=== PATIENT | male | born 1960 | race African-American/Black ===

== ENCOUNTER 2016-07-30 07:53 | Inpatient (IN) | payer MEDICAID ==
[~2016-07-30] VITALS: Ht 172.7 cm; Wt 74.6 kg
[2016-07-30 08:39] LABS: BASOPHILS 0.1 % (0.0-2.0); EOSINOPHILS 0.2 % (0-7); HEMATOCRIT 35.4 % (42.0-54.0); IMMATURE GRANULOCYTES 0.6 % (0-5); LYMPHOCYTES 7.9 % (15-50); MCH 29.9 pg (26.0-34.0); MCHC 33.9 g/dL (31.0-37.0); MCV 88.1 fL (80.0-100.0); MEAN PLATELET VOLUME 9.1 fL (7.4-10.4); MONOCYTES 7.1 % (2-11); NEUTROPHILS 84.1 % (40-80); RBC 4.02 10x6/uL (4.20-6.10); WBC 10.1 10x3/uL (4.8-10.8)
[2016-07-30 08:42] LABS: PLATELET COUNT 122 10x3/uL (130-400)
[2016-07-30 08:48] LABS: APPEARANCE SLT CLOUDY (CLEAR); BILIRUBIN NEGATIVE (NEGATIVE); COLOR YELLOW (YELLOW); GLUCOSE NEGATIVE (NEGATIVE); KETONE NEGATIVE (NEGATIVE); LEUKOCYTE ESTERASE 2+ (NEGATIVE); NITRITE POSITIVE (NEGATIVE); PROTEIN 1+ mg/dL (NEGATIVE); SPECIFIC GRAVITY 1.015 (1.005-1.020); UROBILINOGEN NORMAL (NORMAL); WHITE CELLS - URINE 25-50 /hpf (0-5)
[2016-07-30 08:49] LABS: BACTERIA MANY /hpf (NONE SEEN); CALCIUM OXALATE CRYSTALS RARE /hpf (NONE SEEN); EPITHELIAL CELLS 0-5 /hpf (0-5); MUCUS <1+ /lpf (NONE SEEN)
[2016-07-30 09:22] LABS: ALBUMIN 3.6 g/dL (3.4-5.0); ANION GAP 12.1 mmol/L (8-16); BILIRUBIN - TOTAL 0.87 mg/dL (0.2-1.3); CARBON DIOXIDE 29.8 mmol/L (21.0-32.0); CREATININE - SERUM 1.4 mg/dL (0.6-1.3); POTASSIUM - SERUM 3.9 mmol/L (3.5-5.1); PROTEIN - SERUM 6.7 g/dL (6.4-8.2)
[2016-07-30] MEDS ORDERED: LIDOCAINE HC10 MG/M3 IM (13:38)
[2016-07-30] MEDS ORDERED: CATAPRES0.1 MG PO (13:38)
[2016-07-30] MEDS ORDERED: FUROSEMIDE40 MG PO (13:38)
[2016-07-30] MEDS ORDERED: CEFTRIAXONE1 G/VIAL IM (13:38)
[2016-07-30 13:43] VITALS: BP 158/109; BMI 24.2
[2016-07-30] MEDS ORDERED: PROTONIX40 MG PO (14:05)
[2016-07-30] MEDS ORDERED: NICODERM C1 PATCH .2 TRANSDERM (14:05)
[2016-07-30] MEDS ORDERED: NORCO 7.5/325 T1 TA1 PO (14:06)
[2016-07-30] MEDS ORDERED: TRAZODONE HCL50 MG PO (14:07)
[2016-07-30] MEDS ORDERED: VALIUM5 MG PO (14:08)
[2016-07-30] MEDS ORDERED: K-DUR20 MEQ PO (14:08)
[2016-07-30] MEDS ORDERED: MILK OF MAGNESI30 ML PO (14:09)
[2016-07-30] MEDS ORDERED: NEURONTIN 300300 MG PO (14:10)
[2016-07-30] MEDS ORDERED: ACETAMINOPHEN325 MG PO (14:10)
[2016-07-30] MEDS ORDERED: SENNA LAXATIVE8.6 MG PO (14:11)
[2016-07-30] MEDS ORDERED: NORVASC5 MG PO (14:11)
[2016-07-30] MEDS ORDERED: TIMOPTIC 0.5 % O5 ML EACH EYE (14:12)
[2016-07-30] MEDS ORDERED: ZOFRAN ODT4 MG/UDTAB PO (14:13)
[2016-07-30] MEDS ORDERED: VITAMIN D5000 UNIT PO (14:13)
--- NOTE | 2016-07-30 14:27 | NUR ---
TO REHAB VIA WC.
[2016-07-30 15:25] VITALS: BP 99/54
--- NOTE | 2016-07-30 15:44 | NUR ---
INFORMED BY BRANCH MECHANIC VS ARE FOLLOWS: BP 99/54, P 113, R 16, TEMP 103.1. DR. GOODMAN NOTIFIED BUT HE INFORMED THIS NURSE THAT DR. AGUILAR IS THE ADMITTING DR. DR. AGUILAR NOTIFIED AND ORDERS RECEIVED. BOLUS OF 500CC OF IV FLUIDS STARTED ORDERED. TYLENOL 500MG X2 GIVEN PO FOR TEMP. WILL CONTINUE TO MONITOR.
--- NOTE | 2016-07-30 16:51 | NUR ---
BOLUS DONE. TEMP IS 102.7. BP 110/64
--- NOTE | 2016-07-30 17:28 | HP ---
PATIENT: NOREEN SCHWARTZ MEDICAL RECORD: [id number] ACCOUNT: [id number] LOCATION:[address] : [birth year] ADMISSION DATE: 07/30/16 HISTORY AND PHYSICAL EXAMINATION REASON FOR ADMISSION: Fever and chills. HISTORY OF PRESENT ILLNESS: The patient is a 66-year-old black male from [facility] who was noted to have chills and fever yesterday. It became worse today and his urine appeared cloudy in his Corona, he was sent in for possible urosepsis. The patient said he was chilling so hard, he can hardly keep his teeth closed. He states he has had a remote stroke a few years ago and has been living in this area for the last 10 months at the skilled nursing where he has family working. He said that he had a stroke about 3 years ago and has been unable to care for himself since. He denies cough or abdominal pain. PAST MEDICAL HISTORY: History of skin pressure ulcer, incontinence, CVA with left hemiparesis, essential hypertension, history of urinary retention, chronic anxiety, GERD, chronic pain. PAST SURGICAL HISTORY: He said he has had undergone a surgery on his neck. He is not sure what it was. ALLERGIES: None known. CURRENT MEDICATIONS: Protonix 40 mg p.o. daily, Nicoderm 7 mg q.24 hours, Hensley 325/7.5 one q.6 for pain, trazodone 50 mg one to two at bedtime for sleep, Valium 5 mg p.o. b.i.d., potassium chloride 20 mEq p.o. daily, Milk of Magnesia 15 cc p.o. p.r.n. constipation, clonidine 0.1 two times a day, Lasix 40 mg p.o. q.a.m., Neurontin 300 mg t.i.d., Norvasc 5 mg daily, Senokot 2 tabs daily, timolol maleate 0.5% ophthalmic drops 2 times a day, vitamin D 50,000 units weekly, Zofran ODT 4 mg q.4 hours p.r.n. nausea or vomiting. FAMILY HISTORY: He does not know his family's history. SOCIAL HISTORY: Remote smoker, does not drink alcohol. He used to work in the [employer], he states. He has never been . REVIEW OF SYSTEMS: GENERAL: He denies general malaise until the last 24 hours when he felt chills and fever. HEENT: No recent visual change, sinus congestion, sore throat, or trouble swallowing. RESPIRATORY: No SOB or cough, sputum production. CARDIAC: No chest pain, claudication or edema. He has history of hypertension. No history of heart disease. GASTROINTESTINAL: Some nausea without vomiting. He has intermittent constipation, he states. He had a BM 2 days ago. No history of liver disease or hepatitis. GENITOURINARY: A year and a half ago had trouble with urinary retention, has required a Corona catheter since that time. ENDOCRINE: Denies polyuria, polydipsia, heat or cold intolerance. NEUROLOGIC: Remote history of right hemispheric stroke. No history of seizures. MUSCULOSKELETAL: He has chronic pain in his lumbar spine. HISTORY AND PHYSICAL [id number] NOREEN SCHWARTZ INTEGUMENT: No recent rash or itching. PSYCHIATRIC: Admits to being anxious at times. INTEGUMENT: Had history of decubitus ulcer. PHYSICAL EXAMINATION: VITAL SIGNS: Temperature is 101, heart rate is 90, blood pressure 110/70. The patient is alert and oriented. Respiratory rate is 18. HEENT: Normocephalic. Eyes are clear. NECK: No bruits or masses. CHEST: Clear. HEART: Tachycardic without murmur. ABDOMEN: Mildly distended with hypoactive bowel sounds, nontender. No masses palpable. RECTAL: No stool in the vault. EXTREMITIES: No CC&E. NEUROLOGICAL: The patient is oriented to person and place, but not time. Vision is intact. He has moderate right hemiparesis, weakness in his right arm and leg. Gait was not tested. LABORATORY DATA: Lactic acid is 2.9. Ammonia is 11. White count is 10,000 with 84 polys, 7 lymphs. H&H is 12 and 35 respectively. UA shows cloudy urine, nitrite positive, 5-10 red, 25-50 white cells, many bacteria. Electrolytes were normal. BUN and creatinine is 13 and 1.4. GFR 66 cc per minute. Calcium is normal. Liver functions are normal. DIAGNOSTIC DATA: Chest x-ray was not obtained. EKG shows sinus tachycardia. ASSESSMENT: 1. Urinary tract infection with possible urosepsis. 2. Elevated lactic acid. 3. Hypertension. 4. Tachycardia. 5. History of gastroesophageal reflux disease, remote cerebrovascular accident, remote history of urosepsis, and chronic pain syndrome. PLAN: The patient was given fluid boluses in the ER. He has also been given Tylenol for fever, which is improved. We will culture blood and urine. Place on IV antibiotics. Further workup pending clinical course. TRANSINT:[id number] Voice Confirmation ID: [id number] DOCUMENT ID: [id number] ALHAJI AGUILAR MD at 1728 CC: [id number] DICTATION DATE: 07/30/16 1256 TEACHING ARTIST: 07/30/16 1342 ADM IN [facility] [address] [place] [address]
--- NOTE | 2016-07-30 18:20 | NUR ---
RECEIVED REPORT, [id number], HAS YINA, DENIES ANY NEEDS, CALL LIGHT IN REACH, SCD ARE ON, BED IS LOW, SRX2
--- NOTE | 2016-07-30 22:38 | NUR ---
TEMP-103.1A, BP-107/55, WILL RECHECK TEMP IN 30 MIN
[2016-07-30 22:54] VITALS: BP 119/86
--- NOTE | 2016-07-30 23:16 | NUR ---
RECHECK TEMP-102.4, WILL CONTINUE TO MONITOR
[2016-07-31 00:30] VITALS: BP 98/59
--- NOTE | 2016-07-31 01:31 | NUR ---
LYING IN BED, CALL LIGHT IN REACH. WILL CONTINUE WITH PLAN OF CARE.
[2016-07-31 05:23] VITALS: BP 105/60
[2016-07-31 06:02] LABS: BASOPHILS 0.1 % (0.0-2.0); EOSINOPHILS 0 % (0-7); HEMATOCRIT 29.7 % (42.0-54.0); HEMOGLOBIN 10.1 g/dL (13.5-17.5); IMMATURE GRANULOCYTES 0.3 % (0-5); LYMPHOCYTES 9.4 % (15-50); MCH 29.8 pg (26.0-34.0); MCV 87.6 fL (80.0-100.0); MEAN PLATELET VOLUME 9.6 fL (7.4-10.4); NEUTROPHILS 85.2 % (40-80); PLATELET COUNT 106 10x3/uL (130-400); RBC 3.39 10x6/uL (4.20-6.10); RDW 14.4 % (11.5-14.5)
[2016-07-31 06:17] LABS: WBC 7.1 10x3/uL (4.8-10.8)
[2016-07-31 06:37] LABS: CALCIUM 8.6 mg/dL (8.5-10.1); CREATININE - SERUM 1.3 mg/dL (0.6-1.3)
[2016-07-31 08:00] VITALS: BP 114/74
--- NOTE | 2016-07-31 10:47 | NUR ---
WOUND CARE CONSULT: PT HAS HISTORY OF PRESSURE INJURIES EVIDENCED BY SCARS ON SACRUM/COCCYX/BUTTOCKS, HEELS AND ANKLES. CURRENTLY HE HAS NO OPEN WOUNDS. BILATERAL HEELS AND FEET/TOES HAVE CALLOUSED AREAS AND THERE IS ALSO OLD SCARS AND PEELING DRY SKIN TO SHINS AND CALVES. FEET AND LOWER LEGS ARE VERY DRY AND PEELING, MOISTURIZER APPLIED. HEELS ARE BRIDGED A PRECAUTION. PT IS AWARE THAT HE NEEDS TO CHANGE POSITIONS/TURN EVERY 2 HOURS. HE WAS PLACED ON HIS LEFT SIDE SUPPORTED BY PILLOWS. HE WAS PLACED ON AN AIR OVERLAY MATTRESS. WOUND CARE WILL CONTINUE TO MONITOR.
--- NOTE | 2016-07-31 11:20 | NUR ---
IV access-#20 introcan IV catheter in right hand x 1 attempt for saline lock. Christin Morales RN
--- NOTE | 2016-07-31 11:20 | NUR ---
IV RESITED IN RT HAND BY ANA LAURA LINDSEY NURSE.
[2016-07-31 12:00] VITALS: BP 110/65
[2016-07-31 13:59] VITALS: Ht 172.7 cm; Wt 74.6 kg
--- NOTE | 2016-07-31 14:44 | NUR ---
Patient Name: NOREEN SCHWARTZ Admission Status: ER Accout number: [id number] Admission Date: 07-30-2016 : 1960 Admission Diagnosis: Attending: SHAVONNE Current LOS: 1 Anticipated DC Date: 08-04-2016 Planned Disposition: Ekg Technician Care Fac [facility] Primary Insurance: MEDICAID [place] Discharge Planning Comments: CM MET WITH PATIENT REGARDING D/C NEEDS AND PLANS. PATIENT STATED HE IS A RESIDENT AT [facility] AND WILL RETURN THERE AT DISCHARGE. PATIENT USES A HOSPITAL BED AND WHEELCHAIR AT THE FACILITY. PATIENT HAS TO BE PLACED IN WHEELCHAIR. PATIENT STATED CALL APOLONIA LOPEZ ([facility]) WITH ANY QUESTIONS OR CONCERNS. CM WILL CONTINUE TO FOLLOW PATIENT WITH D/C NEEDS AND PLANS. PCP [facility] IN HOUSE AT [place] APOLONIA LOPEZ ([facility]) [phone] [facility] [phone] Treasury Associate: Kelli eMadows Is the patient Alert and Oriented? Yes 0 * How many steps to enter\exit or inside your home? 0 0 * PCP DR. ROYAL VILLAFANA 0 * Pharmacy IN HOUSE 0 * Preadmission Environment [facility] 0 * Facility Name [facility] 0 * ADLs Total Dependent 0 * Equipment Hospital Bed Wheelchair 0 * List name and contact numbers for known caregivers / representatives who currently or will assist patient after discharge: APOLONIA LOPEZ ([facility]) [phone] 0 * Community resources currently utilized None 0 * Additional services required to return to the preadmission environment? Yes 0 * Can the patient safely return to the preadmission environment? Yes 0 * Has this patient been hospitalized within the prior 30 days at any hospital? No 0 Grand Total: 0
[2016-07-31 16:00] VITALS: BP 113/69
[2016-07-31 21:18] VITALS: BP 142/51
[2016-08-01 01:12] VITALS: BP 125/76
[2016-08-01 05:01] VITALS: BP 129/84
[2016-08-01 06:06] LABS: CALCIUM 8.7 mg/dL (8.5-10.1); CARBON DIOXIDE 25.5 mmol/L (21.0-32.0); CHLORIDE - SERUM 109 mmol/L (98-107); GLUCOSE 100 mg/dL (74-106); POTASSIUM - SERUM 3.2 mmol/L (3.5-5.1); SODIUM 144 mmol/L (136-145)
[2016-08-01 06:07] LABS: CALC OSMOLALITY 283 mosm/kg (275-300); CREATININE - SERUM 0.9 mg/dL (0.6-1.3); UREA NITROGEN 5 mg/dL (7-18); eGFR NON AFRICAN AMERICAN > 90 mL/min (90-120)
[2016-08-01 06:08] LABS: BASOPHILS 0 % (0.0-2.0); EOSINOPHILS 0 % (0-7); HEMATOCRIT 29.1 % (42.0-54.0); HEMOGLOBIN 9.9 g/dL (13.5-17.5); IMMATURE GRANULOCYTES 0.5 % (0-5); LYMPHOCYTES 18.5 % (15-50); MCH 29.6 pg (26.0-34.0); MCV 86.9 fL (80.0-100.0); MEAN PLATELET VOLUME 9.8 fL (7.4-10.4); MONOCYTES 8.1 % (2-11); NEUTROPHILS 72.9 % (40-80); PLATELET COUNT 111 10x3/uL (130-400); RBC 3.35 10x6/uL (4.20-6.10); RDW 14.1 % (11.5-14.5)
--- NOTE | 2016-08-01 07:32 | NUR ---
0700-AM ROUNDING MADE. PATIENT IS A QUAD, TOTAL CARE WTIH BLOW TUBE FOR CALL LIGHT. BILATEAL UPPER EXTREMIEITES ARE CONTRACTURED. BILATERAL LOWER LEGS ARE VERY STILL TO MOVE. SCD'S PLACED ON PATIENT. ON 1ST STEP OVERLAY MATTRESS. ON HEART MONITOR SHWOING SR, HR 64. RIGHT HAND SEEN WITH NS INFUSING AT 75 CC/HR WITHOUT PROBLEMS. BRAN CATH PATENT WITH YELLOW URINE. PATIENT IS TURN EVERY TWO HOURS, TURNED TO LEFT SIDE WITH PILLOWS AT THIS TIME WITH HELP FROM OR[place]O GONZALES. WILL CONTINUE TO MONITOR.
[2016-08-01 08:00] VITALS: BP 139/83
--- NOTE | 2016-08-01 10:16 | NUR ---
LAYING ON LEFT SIDE WITH PILLOWS BEHIND FOR COMFORT. AM MEDS GIVEN. DENIES ANY NEEDS.
[2016-08-01 12:00] VITALS: BP 117/76
[2016-08-01 16:00] VITALS: BP 137/79
--- NOTE | 2016-08-01 18:09 | NUR ---
PATIENT HAS BEEN CLEANED TWICE THIS SHIFT FOR INCONT. OF STOOL. TURNED EVERY TWO HOURS. BLOW CALL LIGHT IN USE. WILL CONTINUE TO MONITOR.
[2016-08-01 22:07] VITALS: BP 127/80
--- NOTE | 2016-08-01 22:27 | NUR ---
INITIAL ROUNDS COMPLETED AT 1914 HRS. PT DENIED ANY DISCOMFORT. H2O GIVEN PER REQUEST. PT INCONTINENT OF STOOL AT 2024 HRS. INCONTINENT CARE DONE. PT DECLINES OFFER TO BE TURNED AT THAT TIME STATING HE WANTS TO BE ON HIS BACK. ASSESSMENT COMPLETED AT 2029 HRS. IV TO R HAND WITH NS AT 10CC/HR. IV PATENT. LUNGS DIMINISHED IN BASES BILAT. HAND WITH CONTRACTURES AND LEGS STIFF. PALPABLE PEDAL PULSES. SCD'S IN USE. SCD'S REMOVED AND SKIN INSPECTED. NO BREAKDOWN NOTED. SMALL THICKENED AREA NOTED TO L HEEL. PT STATES PAINFUL TO TOUCH. BILAT LOWER LEGS ELEVATED TO GET HEELS OFF THE BED. BRAN DRAINING YELLOW URINE. 1ST STEP AIR OVERLAY IN USE. SR PER CM HR 66. PT REFUSED PM EYE DROPS. PT INCONTINENT OF STOOL AT 2134 HRS. INCONTINENT CARE DONE. PT REFUSES TO BE TURNED AND STATES WANTS TO STAY ON BACK. PILLOWS REPOSITIONED AND NOURISHMENT OFFERED. PT CURRENTLY DENIES ANY NEEDS. CALL LIGHT WITHIN REACH.
--- NOTE | 2016-08-01 22:57 | NUR ---
PT INSISTING HIS BRAN IS CLOGGED. REAJUSTED BALLOON WITH NO RESISTANCE NOTED. BRAN FLUSHED WITH 20CC OF STERILE SALINE USING STERILE TECHNIQUE. NO RESISTANCE NOTED AND IMMEDIATE DRAINAGE OCCURED. SHOWED PT BRAN WITH 300CC OF YELLOW URINE IN BAG. PT'S CHRONIC CATH DOES NOT FIT STAYLOCK. STAYLOCK IS TOO SMALL. BRAN REMOVED FORM STAYLOCK AND ADHERED TO THIGH. WILL CONTINUE TO MONITOR. CALL LIGHT WITHIN REACH.
--- NOTE | 2016-08-02 00:53 | NUR ---
BED ATH DONE, BED LINENS CHANGED. PT REPOSITIONED IN BED FOR COMFORT. WILL CONTINUE TO MONITOR.
[2016-08-02 01:00] VITALS: BP 141/84
--- NOTE | 2016-08-02 02:20 | NUR ---
PT RESTING WITH EYES CLOSED. RESP EVEN AND REGULAR. SR UP X2, CALL LIGHT WITHIN REACH.
--- NOTE | 2016-08-02 02:42 | NUR ---
PT INCONTINENT OF STOOL. INCONTINENT CARE DONE. PT REPOSITIONED ONTO R SIDE AT THAT TIME. WILL CONTINUE TO MONITOR. CALL LIGHT WITHIN REACH.
--- NOTE | 2016-08-02 04:02 | NUR ---
PT REPOSITIONED IN BED FOR COMFORT. WILL CONTINUE TO MONITOR.
[2016-08-02 04:31] VITALS: BP 156/63
--- NOTE | 2016-08-02 06:35 | NUR ---
VSS THROUGHOUT NIGHT. SR PER CM. PT INCONTINENT OF STOOL X4 DURING SHIFT. PT REFUSED TO BE TURNED A FEW TIMES. NEEDS MET; WILL CONTINUE TO MONITOR.
--- NOTE | 2016-08-02 07:23 | NUR ---
0710-AM ROUNDING MADE. PATIENT IS USING HIS BLOW CALL LIGHT, HE IS A QUAD. UNABLE TO EXTEND ARMS, CONTRACTURED. BILATERAL LEGS ARE STIFF, SCD'S ARE ON AND IN USE. ON 1ST STEP OVERLAY MATTRESS. ON HEART MONITOR SHOWING SB, HR 51. BRAN CATH PATENT WITH YELLOW URINE. RIGHT HAND SEEN WITH NS INFUSING AT 10 CC/HR. WILL CONTINUE TO MONITOR.
--- NOTE | 2016-08-02 07:30 | NUR ---
LAB HERE WITH RESULTS ON PAPER OF ESBL + E COLI ISOLATED. TO BE IN CONTACT ISOLATION.
[2016-08-02 07:40] LABS: BASOPHILS 0.3 % (0.0-2.0); EOSINOPHILS 1.3 % (0-7); HEMATOCRIT 29.6 % (42.0-54.0); HEMOGLOBIN 10.1 g/dL (13.5-17.5); IMMATURE GRANULOCYTES 0.3 % (0-5); LYMPHOCYTES 29.3 % (15-50); MCH 29.5 pg (26.0-34.0); MCHC 34.1 g/dL (31.0-37.0); MCV 86.5 fL (80.0-100.0); MONOCYTES 9.7 % (2-11); NEUTROPHILS 59.1 % (40-80); PLATELET COUNT 119 10x3/uL (130-400); RBC 3.42 10x6/uL (4.20-6.10); RDW 13.9 % (11.5-14.5)
[2016-08-02 07:43] LABS: WBC 3.9 10x3/uL (4.8-10.8)
[2016-08-02 07:57] LABS: CALC OSMOLALITY 281 mosm/kg (275-300); CALCIUM 8.4 mg/dL (8.5-10.1); CARBON DIOXIDE 25.6 mmol/L (21.0-32.0); CHLORIDE - SERUM 109 mmol/L (98-107); CREATININE - SERUM 0.8 mg/dL (0.6-1.3); GLUCOSE 95 mg/dL (74-106); POTASSIUM - SERUM 3.3 mmol/L (3.5-5.1); SODIUM 143 mmol/L (136-145); UREA NITROGEN 5 mg/dL (7-18); eGFR NON AFRICAN AMERICAN > 90 mL/min (90-120)
[2016-08-02 08:00] VITALS: BP 128/80
--- NOTE | 2016-08-02 08:08 | NUR ---
K+ IS 3.3, WILL REPLACE WITH SUPPLEMENTS.
[2016-08-02 12:00] VITALS: BP 132/76
--- NOTE | 2016-08-02 14:50 | NUR ---
WE HAVE RE-POSTIOINED PATEINT NUMEROUS TIMES TODAY AND ALSO BEEN TURNING HIM EVERY TWO HOURS. HAS BEEN ON THE CALL LIGHT APPROX. EVERY 15-30 MIN. WITH REQUESTS. WILL CONTINUE TO MONITOR.
[2016-08-02 16:27] VITALS: BP 143/83
--- NOTE | 2016-08-02 17:22 | NUR ---
ANSWERED CALL LIGHT AGAIN, PATIENT WANTING TV OFF. ASKED IF PATIENT WAS HUNGRY SINCE HE HAS NOT EATEN ALL DAY, HE REPLIES, "I'LL EAT IN A BIT" WILL CONTINUE TO MONITOR.
--- NOTE | 2016-08-02 19:40 | NUR ---
PT INCONTINENT OF STOOL AT SHIFT CHANGE. INCONTINENT CARE DONE. REPOSITIONED IN BED FOR COMFORT. WILL CONTINUE TO MONITOR.
[2016-08-02 21:20] VITALS: BP 143/83
--- NOTE | 2016-08-02 23:40 | NUR ---
ASSESSMENT COMPETED AT 1950 HRS. VSS. SB PER CM HR 54. IV TO R HAND WITH NS AT TKO. IV PATENT. LUNGS DIMINISHED INBASES BILAT. BILAT HANDS WITH CONTRACTURES. GROSS MOVEMENT TO R ARM NOTED. BILAT LEGS STIFF . UNSTAGEABLE SORE APPROX 2CM IN DIAMTER NOTED TO L HEEL. BILAT HEELS ELEVATED ON PILLOWS. SCD'S REMOVED AND SKIN INSPECTED. NO BREAKDOWN NOTED. BRAN DRAINING YELLOW URINE. PT ON A 1ST STEP AIR OVERLAY MATTRESS. PT REFUSES EYE DROPS BUT ACCEPTED TYLENOL 500MG PO FOR A CORRIGAN. PT LABOR UTILIZATION SUPERINTENDENT LIGHT FREQUETLY REQUESTING TO BE TURNED, PILLOWS ADJUSTED, REFRESHMENTS TO BE GIVEN OR TO BE READJUSTED IN BED. PT CURRENTLY RESTING WITH EYES CLOSED. RAMSEY EVEN AND REGULAR. SR UP X2, CLL LIGHT WITHIN JAH.
[2016-08-03 00:30] VITALS: BP 137/81
--- NOTE | 2016-08-03 01:19 | NUR ---
PT RESTING WITH EYES CLOSED. RESP EVEN AND REGULAR. SR UP X2, CALL LIGHT WITHIN REACH.
--- NOTE | 2016-08-03 02:36 | NUR ---
PT RESTING WITH EYES CLOSED. RESP EVEN AND REGULAR. SR UP X2, CALL LIGHT WITHIN REACH.
[2016-08-03 04:30] VITALS: BP 125/68
--- NOTE | 2016-08-03 04:42 | NUR ---
CRANBERRY JUICE GIVEN PER REQUEST. WILL CONTINUE TO MONITOR.
--- NOTE | 2016-08-03 06:41 | NUR ---
VSS THROUGHOUT NGIHT. SR PER CM. PT VERY DEMANDING DURING SHIFT, RESPITE WORKER LIGHT FREQUENTLY TO READJUST PILLOWS, SMOOTH SHEETS, MOVE EXTREMITIES ETC. NEEDS MET; WILL CONTINUE TO MONITOR.
--- NOTE | 2016-08-03 07:34 | NUR ---
0700-IN CONTACT ISOLATION FOR E COLI CONTAINED IN URINE, PATIENT HAS A CHRONIC CATH. PATIENT IS A QUAD, CONTRACTURES SEEN TO BILATERAL HANDS AND ARMS. NS INFUSING TO RIGHT HAND AT KVO. BILATEAL LEGS ARE VERY STIFF, PATIENT IS TOTAL CARE. SCD'S ARE ON AND IN USE. ON HEART MONITOR SHOWING SB, HR 50. ON ROOM AIR. PATIENT USES BLOW STRAW FOR CALL LIGHT. ON 1ST STEP OVERLAY MATTRESS. POSTIONINED TO LEFT SIDE WITH PILLOWS FOR COMFORTS, LEFT HEEL WITH SOFT SPOT, UP ON PILLOW. WILL CONTINUE TO MONITOR. 0724-CALLED BACK IN ROOM FOR SIP OF WATER.
[2016-08-03 07:59] LABS: MAGNESIUM - SERUM 1.4 mg/dL (1.8-2.4); POTASSIUM - SERUM 3.1 mmol/L (3.5-5.1)
[2016-08-03 09:10] VITALS: BP 144/77
--- NOTE | 2016-08-03 09:58 | NUR ---
0724-CALLED TO ROOM FOR SIP OF COLD WATER. 0754-CALLED TO ROOM FOR SIP OF WATER 0804-CALLED TO ROOM TO STRATEN LEFT HEEL OUT. 0820-GAVE AM MEDS AND POTASSIUM REPLACEMENT 0845-CALLED TO ROOM WITH COMPLAINT OF BRAN DISCOMFORT, FOELY IS PATENT AND DRAINING. 0910-CALLED TO ROOM TO BE PLACED ON RIGHT SIDE. 1000-CALLED TO ROOM TO BE PLACED ON LEFT SIDE, DONE WITH PILLOWS. ASKED IF HE NEEDED ANYTHING ELSE WHILE I AM IN HERE, DENIES NEEDS.
[2016-08-03 12:00] VITALS: BP 140/68
--- NOTE | 2016-08-03 12:00 | NUR ---
1018-CALLED TO ROOM WANTING PILLOWS REMOVED, PLACED ON BACK. 1105-PLACED ON LEFT SIDE WITH PILLOWS. 1126-WANTING PILLOWS UNDER RIGHT SHOULDER. 1150-CALLED TO ROOM WANTING THE BLUE CUP AND PACKAGES OF CHIPS REMOVED AND PLACED BY THE PHONE.
--- NOTE | 2016-08-03 12:48 | NUR ---
1214-CALLED TO ROOM FOR SIP OF WATER. 1224-WANTS TO SEE NURSE. 1230-WANTS TO KNOW WHEN HE WILL GO HOME, I TOLD HIM THAT DR AGUILAR SAID YESTERDAY HE WOULD BE HERE OVER THE WEEKEND. STARTED TO STEP OUT AND HE WANTED PLACED ON HIS RIGHT SIDE.
--- NOTE | 2016-08-03 13:05 | NUR ---
DR ECHEVERRIA HERE TO SEE PATIENT. PATIENT HAS BEEN CLEANED WITH COMPELTE BATH AND LINEN CHANGE R/T INCONT. STOOL
[2016-08-03] MEDS ORDERED: MACROBID100 MG PO (13:19)
[2016-08-03] MEDS ORDERED: LEVAQUIN750 MG PO (13:19)
--- NOTE | 2016-08-03 15:18 | NUR ---
CALLED REPORT TO SELMA JOSEPH LPN AT [facility].
[2016-08-03 16:00] VITALS: BP 149/87
--- NOTE | 2016-08-03 16:24 | NUR ---
CALLED [facility] TO TRANSPORT PATIENT TO [facility].
--- NOTE | 2016-08-03 17:10 | NUR ---
1250-NEEDS TO BE CHANGED, INCONT. OF STOOL. PLACED ON BACK. 1322-CALLED TO ROOM, NEEDS HELP TO MAKE PHONE CALL. 1337-WANTS TO KNOW IF HE IS GOING HOME, WHAT TIME HE IS GOING, AND WANTS TRAY REMOVED FROM ROOM. 1405-MEDS GIVEN WITH SIP OF WATER. 1540-CALLED TO RAISE HEAD OF BED, PLACED ON RIGHT SIDE. 1515-WANTS MORE ON RIGHT SIDE. 1531-COVER HANDS UP, REMOVE/STRAIGHTEN LINEN UNDER HIS SHOULDER, PUSH CALL LIGHT BACK TO HIM. 1545-SIP OF WATER 1558-SOMETHING IS BOTHERING HIM UNDER HIS BACK, RE-ADJUSTED 1640-SALINE LOCK OUT WITH CATH TIP INTACT 1650-CALLED ROOM, WANTING TO KNOW WHEN HE IS GOING HOME. I TOLD HIM AGAIN THAT THE AMBULANCE WAS CALLED. 1700-CALLED TO ROOM, WANTING TO KNOW WHEN AMBULANCE WILL BE HERE. 1705-DISCHARGED VIA STRETCHER TO [facility].
--- NOTE | 2016-08-03 17:23 | NUR ---
LATE ENTRY RECEIVED NOTIFICATION OF DISCHARGE BACK TO [facility]. CM SPOKE W/ SELMA THEN JOSE. FAXED H/P, DISCHARGE SUMMARY, ALL CULT REPORTS, LABS, CONSULTS AND DISCHARGE MEDS TO [phone] AND [phone]. AWAITED CB W/ AUTORIZATION TO SEND. PATIENT FOR TRANSPORTATION VIA AMBULANCE. CM DISCUSSED W/ PATIENT'S PRIMARY NURSE. CB AT 6185. SPOKE W/ JOSE. PATIENT HAD BEEN APPROVED TO COME. PRIMARY NURSE GAVE REPORT. PATIENT WAS ADMITTED TO A STATION CLEANING PORTER BED.
--- NOTE | 2016-08-04 10:44 | NUR ---
RECIEVED BOTH URINE AND BLOOD CULTURE RESULTS TO MY DESK THIS MORNING. CONTACTED MARYLOU CAMILO RN POT PRESS OPERATOR AT [facility] [phone] REGARDING MDRO POSTIVE CULTURES. FAXED CULTURES TO [phone]. MARYLOU WILL FOLLOW UP WITH [facility] PHYSICIAN.
== END 2016-08-03 17:17 | DRG 872 ==
LOC: D.ER 07:53 → EDBD 11:34 → D.M2 11:34
PROVIDERS: Emergency Medicine; ADMIT Family Medicine
DX: A41.51 Sepsis due to Escherichia coli [E. coli] (principal); N39.0 Urinary tract infection, site not specified; I69.954 Hemiplegia and hemiparesis following unspecified cerebrovascular disease affecting left non-dominant side; I10 Essential (primary) hypertension; F41.9 Anxiety disorder, unspecified; K21.9 Gastro-esophageal reflux disease without esophagitis; D64.9 Anemia, unspecified; G89.4 Chronic pain syndrome

== ENCOUNTER 2016-12-13 22:00 | Emergency (ER) | payer MEDICAID ==
[2016-07-31 13:59] VITALS: BMI 22.9
[~2016-12-13 22:00] MED LIST: ACETAMINOPHEN325 MG PO; CATAPRES0.1 MG PO; CEFTRIAXONE1 G/VIAL IM; FUROSEMIDE40 MG PO; K-DUR20 MEQ PO; LEVAQUIN750 MG PO; LIDOCAINE HC10 MG/M3 IM; MACROBID100 MG PO; MILK OF MAGNESI30 ML PO; NEURONTIN 300300 MG PO; NICODERM C1 PATCH .2 TRANSDERM; NORCO 7.5/325 T1 TA1 PO; NORVASC5 MG PO; PROTONIX40 MG PO; SENNA LAXATIVE8.6 MG PO; TIMOPTIC 0.5 % O5 ML EACH EYE; TRAZODONE HCL50 MG PO; VALIUM5 MG PO; VITAMIN D5000 UNIT PO; ZOFRAN ODT4 MG/UDTAB PO
[2016-12-13 22:34] LABS: APPEARANCE CLOUDY (CLEAR); COLOR YELLOW (YELLOW)
[2016-12-13 22:35] LABS: BILIRUBIN NEGATIVE (NEGATIVE); GLUCOSE NEGATIVE (NEGATIVE); KETONE NEGATIVE (NEGATIVE); LEUKOCYTE ESTERASE 2+ (NEGATIVE); NITRITE POSITIVE (NEGATIVE); PROTEIN TRACE mg/dL (NEGATIVE); SPECIFIC GRAVITY 1.015 (1.005-1.020); UROBILINOGEN NORMAL (NORMAL)
[2016-12-13 22:36] LABS: RED CELLS - URINE 0-5 /hpf (0-5)
[2016-12-13 22:37] LABS: BACTERIA MANY /hpf (NONE SEEN); EPITHELIAL CELLS 0-5 /hpf (0-5)
[2016-12-13 22:38] LABS: GRANULAR CAST 0-5 /lpf (NONE SEEN); HYALINE CAST 0-5 /lpf (NONE SEEN)
[2016-12-13 22:42] LABS: BASOPHILS 0.3 % (0-2); HEMATOCRIT 37.8 % (42.0-54.0); HEMOGLOBIN 13.3 g/dL (13.5-17.5); IMMATURE GRANULOCYTES 0.2 % (0-5); LYMPHOCYTES 26.3 % (15-50); MCHC 35.2 g/dL (31.0-37.0); MCV 88.1 fL (80.0-100.0); MEAN PLATELET VOLUME 9.4 fL (7.4-10.4); MONOCYTES 5.6 % (2-11); NEUTROPHILS 65.6 % (40-80); PLATELET COUNT 139 10x3/uL (130-400); RBC 4.29 10x6/uL (4.20-6.10); RDW 14.4 % (11.5-14.5); WBC 5.9 10x3/uL (4.8-10.8)
[2016-12-13 22:47] LABS: UDS - AMPHET NEGATIVE QUAL (NEGATIVE); UDS - BARB NEGATIVE QUAL (NEGATIVE); UDS - BENZO POSITIVE QUAL (NEGATIVE); UDS - COCAINE NEGATIVE QUAL (NEGATIVE); UDS - METH NEGATIVE QUAL (NEGATIVE); UDS - OPIATE POSITIVE QUAL (NEGATIVE); UDS - PCP NEGATIVE QUAL (NEGATIVE); UDS - THC NEGATIVE QUAL (NEGATIVE)
[2016-12-13 22:57] LABS: ALBUMIN 4.1 g/dL (3.4-5.0); ALKALINE PHOSPHATASE 86 U/L (46-116); ALT (SGPT) 16 U/L (10-68); BILIRUBIN - TOTAL 0.42 mg/dL (0.2-1.3); CALC OSMOLALITY 278 mosm/kg (275-300); CALCIUM 8.9 mg/dL (8.5-10.1); CARBON DIOXIDE 26.8 mmol/L (21.0-32.0); CHLORIDE - SERUM 102 mmol/L (98-107); GLUCOSE 96 mg/dL (74-106); POTASSIUM - SERUM 3.5 mmol/L (3.5-5.1); PROTEIN - SERUM 7.5 g/dL (6.4-8.2); SODIUM 140 mmol/L (136-145); UREA NITROGEN 13 mg/dL (7-18); eGFR NON AFRICAN AMERICAN 83 mL/min (90-120)
[2016-12-13 23:01] LABS: CREATINE KINASE 186 UL (21-232)
[2016-12-13 23:07] LABS: TROPONIN-I < 0.017 ng/mL (0.000-0.060)
== END 2016-12-14 00:40 | disposition home or self-care (01) ==
LOC: D.ER 22:00
PROVIDERS: Emergency Medicine
DX: R41.82 Altered mental status, unspecified (principal); N39.0 Urinary tract infection, site not specified; K21.9 Gastro-esophageal reflux disease without esophagitis; I50.9 Heart failure, unspecified